=== PATIENT | female | born 1970 | race African-American/Black ===

== ENCOUNTER → 2016-11-07 | Outpatient (CLI) | payer MEDICAID ==
--- NOTE | 2016-11-07 10:36 | WOMENS IMAGING REPORT ---
EXAM DESCRIPTION: BILAT SCREENING MAMMO W/CAD COMPLETED DATE/TIME: 11/07/2016 10:13 am REASON FOR STUDY: Z12.31 ROUTINE SCREENING Z12.31 ENCNTR SCREEN MAMMOGRAM FOR MALIGNANT NEOPLASM OF NOHEMI COMPARISON: May 2013 TECHNIQUE: Standard craniocaudal and mediolateral oblique views of each breast recorded using digita l acquisition. LIMITATIONS: None. FINDINGS: No masses, calcifications or architectural distortion. No areas of suspicion. Read with the assistance of CAD. .[facility] - R2 Cenova Version 1.3 .[facility] Imaging - R2 Cenova Version 1.3 .[facility] Imaging - R2 Cenova Version 2.4 .[facility] - R2 Cenova Version 2.4 .[facility] - R2 Fish [employer] Processor Version 9.2 IMPRESSION: NORMAL MAMMOGRAM. BIRADS 1. BREAST DENSITY: c. The breasts are heterogeneously dense, which may obscure small masses. BIRAD: 1 NEGATIVE RECOMMENDATION: ROUTINE SCREENING COMMENT: The patient has been notified of the results by letter per SA requirements. Additional no tification policies are in place for contacting patient with suspicious or incomplete findings. Quality ID #[id number]: The [employer] recommends an annual screening mammogram for women aged 40 years or over. This facility utilizes a reminder system to ensure that all patients receive reminder letters, and/or direct phone calls for appointments. This includes reminders for routine scr eening mammograms, diagnostic mammograms, or other Breast Imaging Interventions when appropriate. Th is patient will be placed in the appropriate reminder system. The [employer] (ACR) has developed recommendations for screening MRI of the breast s in certain patient populations, to be used in conjunction with mammography. Breast MRI surveillanc e may be appropriate for women with more than 20% lifetime risk of developing breast cancer as deter mined by genetic testing, significant family history of the disease, or history of mantle radiation f or Hodgkins Disease. ACR Practice Guidelines 2008. TECHNICAL DOCUMENTATION: FINDING NUMBER: (1) ASSESSMENT: (1) JOB ID: [id number] [employer]- All Rights Reserved
== END ==
LOC: WI 09:57
PROVIDERS: ATTEND Physician Assistant
DX: Z12.31 Encounter for screening mammogram for malignant neoplasm of breast (principal)
CPT/HCPCS: 77067; G0202

== ENCOUNTER 2016-11-14 06:51 | Day surgery (SDC) | payer MEDICAID ==
[2016-11-14] MEDS ORDERED: ALBUTEROL SULFATE 0.083% NEB 2.5 MG/3 ML AMPUL NEB ONE ×2 (08:17→08:26)
[2016-11-14] MEDS ORDERED: ONDANSETRON HCL INJ/PF 4 MG/2 ML SDV ONE (08:26)
[2016-11-14] MEDS ORDERED: MIDAZOLAM 2 MG/2 ML INJ ONE (08:27)
[2016-11-14] MEDS ORDERED: FAMOTIDINE INJ/PF 20 MG/2 ML SDV IV ONE (08:27)
[2016-11-14] MEDS ORDERED: PROPOFOL INJ 200 MG/20 ML VIAL IV ONE (09:55)
[2016-11-14] MEDS ORDERED: RINGERS SOLUTION,LACTATED 1,000 ML IV PRN (10:00)
[2016-11-14] MEDS ORDERED: RINGERS SOLUTION,LACTATED 1,000 ML IV ONE (10:00)
[2016-11-14] MEDS ORDERED: DIPHENHYDRAMINE HCL 50 MG/ML VIAL IV PRN (10:11)
[2016-11-14] MEDS ORDERED: PROMETHAZINE HCL INJ 25 MG/1 ML VIAL IV PRN (10:11)
[2016-11-14] MEDS ORDERED: FENTANYL CITRATE INJ/PF 100 MCG/2 ML AMPUL IV PRN ×3 (10:11)
[2016-11-14] MEDS ORDERED: MORPHINE SULFATE 10 MG/ML INJ IV PRN (10:11)
[2016-11-14] MEDS ORDERED: MEPERIDINE HCL/PF INJ 25 MG/1 ML DISP.SYRIN IV PRN (10:11)
--- NOTE | 2016-11-14 11:03 | Operative Report ---
Operative Report DATE OF SURGERY: 11/14/16 Operative Report: The risks, benefits and alternatives of the procedure including risks of bleeding, patient requiring surgery are explained to the patient detail and informed consent was obtained. The patient is taken back to the operating room and placed in a left, lateral decubital position. Timeout was called. Propofol medications administered. An Olympus endoscope was inserted into the patient's rectum. The scope was then gradually advanced all the way to the cecum. The cecum was identified by the usual anatomical landmarks including the ileocecal valve as well as the appendiceal office. Photodocumentation is obtained. Prep is good. Scope was then sequentially pulled back. The various segments of the colon including the ascending colon, hepatic flexure, transverse colon, splenic flexure, descending colon and finally to the rectosigmoid portions of the colon. Retroflexion maneuver was performed. PREOPERATIVE DIAGNOSIS: Rectal bleeding. Colorectal cancer screening POSTOPERATIVE DIAGNOSIS: Internal hemorrhoids. Small anal fissure. Mild right- sided inflammation status post biopsy OPERATION: Colonoscopy with biopsy SURGEON: ANA WALTON ANESTHESIA: LMAC TISSUE REMOVED OR ALTERED: Right side: Specimens obtained without lymphocytic, microscopic, collagenous colitis. COMPLICATIONS: None. ESTIMATED BLOOD LOSS: None. INTRAOPERATIVE FINDINGS: As described above. PROCEDURE: Patient tolerated the procedure well. No immediate postprocedure complications are noted. Patient discharged in good condition. Discharge date 11/14/2016. Discharge diet: Regular. Discharge activity: Regular. 2-3 week follow-up to discuss findings. We will wait on biopsies. Patient is instructed to call the office or proceed to the emergency room should there be any further problems or questions.
[2016-11-14] MEDS ORDERED: SIMETHICONE 80 MG TAB.CHEW PO ONE (11:35)
[2016-11-14] MEDS ORDERED: SIMETHICONE 80 MG TAB.CHEW PO PRN (12:01)
[2016-11-14 12:13] VITALS: BP 109/66
== END 2016-11-14 12:05 | disposition home or self-care (01) ==
LOC: OROUT 06:51
PROVIDERS: ATTEND Internal Medicine Gastroenterology
PROC: 0DBF8ZX Excision of Right Large Intestine, Via Natural or Artificial Opening Endoscopic, Diagnostic (ICD-10-PCS; principal; 2016-11-14 09:15)
DX: K52.9 Noninfective gastroenteritis and colitis, unspecified (principal); K62.5 Hemorrhage of anus and rectum; K64.8 Other hemorrhoids; F17.210 Nicotine dependence, cigarettes, uncomplicated; M19.90 Unspecified osteoarthritis, unspecified site; Z79.899 Other long term (current) drug therapy; Z88.6 Allergy status to analgesic agent; Z88.8 Allergy status to other drugs, medicaments and biological substances
CPT/HCPCS: 45380; 81025; 88305 ×2; J2250; J2405; J2704; S0028; 810

== ENCOUNTER → 2017-11-27 | Outpatient (CLI) | payer MEDICAID, OTHER ==
--- NOTE | 2017-11-27 18:41 | WOMENS IMAGING REPORT ---
EXAM DESCRIPTION: BILAT SCREENING MAMMO W/CAD COMPLETED DATE/TIME: 11/27/2017 11:46 am REASON FOR STUDY: SCREENING MAMMO Z12.31 ENCNTR SCREEN MAMMOGRAM FOR MALIGNANT NEOPLASM OF NOHEMI COMPARISON: 2012 TECHNIQUE: Standard craniocaudal and mediolateral oblique views of each breast recorded using digita l acquisition. LIMITATIONS: None. FINDINGS: No masses, calcifications or architectural distortion. No areas of suspicion. Read with the assistance of CAD. .[facility] - R2 Cenova Version 1.3 .[facility] Imaging - R2 Cenova Version 1.3 .[facility] Imaging - R2 Cenova Version 2.4 .[facility] - R2 Cenova Version 2.4 .[facility] - R2 Supervisor Frame Assembly Version 9.2 IMPRESSION: NORMAL MAMMOGRAM. BIRADS 1. BREAST DENSITY: c. The breasts are heterogeneously dense, which may obscure small masses. BIRAD: 1 NEGATIVE RECOMMENDATION: ROUTINE SCREENING Please continue yearly bilateral screening in November 2018. Consider bilateral screening tomosynthesis given heterogeneously dense tissue bilaterally. COMMENT: The patient has been notified of the results by letter per SA requirements. Additional no tification policies are in place for contacting patient with suspicious or incomplete findings. Quality ID #225: The [employer] recommends an annual screening mammogram for women aged 40 years or over. This facility utilizes a reminder system to ensure that all patients receive reminder letters, and/or direct phone calls for appointments. This includes reminders for routine scr eening mammograms, diagnostic mammograms, or other Breast Imaging Interventions when appropriate. Th is patient will be placed in the appropriate reminder system. The [employer] (ACR) has developed recommendations for screening MRI of the breast s in certain patient populations, to be used in conjunction with mammography. Breast MRI surveillanc e may be appropriate for women with more than 20% lifetime risk of developing breast cancer as deter mined by genetic testing, significant family history of the disease, or history of mantle radiation f or Hodgkins Disease. ACR Practice Guidelines 2008. TECHNICAL DOCUMENTATION: FINDING NUMBER: (1) ASSESSMENT: (1) JOB ID: [id number] [employer]- All Rights Reserved Reading location - IP/workstation name: [facility]
== END ==
LOC: WI 10:40
PROVIDERS: ATTEND Family Medicine
DX: Z12.31 Encounter for screening mammogram for malignant neoplasm of breast (principal)
CPT/HCPCS: 77067

== ENCOUNTER 2017-12-12 09:04 | Emergency (ER) | payer OTHER ==
--- NOTE | 2017-12-12 10:07 | ER Document Report ---
ED GI/ - General Chief Complaint: Abdominal Pain Stated Complaint: ABDOMINAL PAIN Time Seen by Provider: 12/12/17 10:05 Mode of Arrival: Ambulatory Information source: Patient TRAVEL OUTSIDE OF THE U.S. IN LAST 30 DAYS: No - HPI Patient complains to provider of: Abdominal pain Onset: Other - 1 MONTH Timing/Duration: Gradual, Intermittent, Worse - LAST 2 DAYS Quality of pain: Dull Severity at maximum: Moderate Severity in ED: Moderate Context: denies: Bad food, Lifting, Out of the country travel, , Recent trauma Location: LUQ - W/ RADIATION TO CHEST Vaginal bleeding (Compared to normal period): None Menstrual period history: denies: Associated symptoms: Nausea, Vomiting Exacerbated by: Denies Relieved by: Denies Similar symptoms previously: Yes - BEFORE GB REMOVAL Recently seen / treated by doctor: No - Related Data Allergies/Adverse Reactions: aspirin [Aspirin] Allergy (Verified 12/12/17 09:05) hydroxyzine HCl [From Vistaril] Allergy (Verified 12/12/17 09:05) hydroxyzine pamoate [From Vistaril] Allergy (Verified 12/12/17 09:05) risperidone [From Risperdal] Allergy (Verified 12/12/17 09:05) Past Medical History - General Information source: Patient - Social History Smoking Status: Unknown if Ever Smoked Cigarette use (# per day): No Chew tobacco use (# tins/day): No Smoking Education Provided: No Frequency of alcohol use: Occasional Drug Abuse: None Lives with: Family Family History: CAD, DM Patient has suicidal ideation: No Patient has homicidal ideation: No - Past Medical History Cardiac Medical History: Reports: None Denies: Hx Coronary Artery Disease, Hx Heart Attack, Hx Hypertension Pulmonary Medical History: Reports: Hx Bronchitis Denies: Hx Asthma, Hx COPD, Hx Pneumonia EENT Medical History: Reports: None Neurological Medical History: Reports: None. Denies: Hx Cerebrovascular Accident, Hx Seizures Endocrine Medical History: Reports: None Renal/ Medical History: Reports: Hx Ectopic Malignancy Medical History: Reports: None GI Medical History: Reports: Hx Gastroesophageal Reflux Disease, Hx Pancreatitis - SECONDARY TO GB DISEASE Musculoskeltal Medical History: Reports Hx Arthritis - Shoulders/Legs Psychiatric Medical History: Reports: Hx Bipolar Disorder, Hx Depression Past Surgical History: Reports: Hx Cholecystectomy, Hx Gynecologic Surgery - ectopic, Hx Tubal Ligation - Immunizations Immunizations up to date: No Hx Diphtheria, Pertussis, Tetanus Vaccination: Yes Review of Systems - Review of Systems Constitutional: No symptoms reported. denies: Chills, Fever, Weight loss EENT: No symptoms reported Cardiovascular: Chest pain Respiratory: No symptoms reported Gastrointestinal: See HPI Genitourinary: No symptoms reported Female Genitourinary: No symptoms reported Musculoskeletal: No symptoms reported Skin: No symptoms reported Neurological/Psychological: No symptoms reported Physical Exam - Vital signs Vitals: Temp Pulse Resp BP Pulse Ox 98.2 F 85 20 120/78 97 12/12/17 09:09 12/12/17 09:09 12/12/17 09:09 12/12/17 09:09 12/12/17 09:09 Interpretation: Normal - General General appearance: Appears well, Alert In distress: None - HEENT Head: Normocephalic Eyes: Normal Conjunctiva: Normal Ears: Normal Nasal: Normal Mouth/Lips: Normal Mucous membranes: Normal - Respiratory Respiratory status: No respiratory distress Breath sounds: Normal - Cardiovascular Rhythm: Regular Heart sounds: Normal auscultation Murmur: No - Abdominal Inspection: Normal Distension: No distension Bowel sounds: Normal Tenderness: Tender - LUQ, LESSER LLQ - Back Back: Normal - Extremities General upper extremity: Normal inspection General lower extremity: Normal inspection - Neurological Neuro grossly intact: Yes Cognition: Normal Orientation: AAOx4 - Psychological Associated symptoms: Normal affect, Normal mood - Skin Skin Temperature: Warm Skin Moisture: Dry Skin Color: Normal Skin Turgor: Elastic Course - Re-evaluation Re-evalutation: 12/12/17 14:36 Patient reports abdominal pain still present. Nausea has resolved. Results of workup discussed with patient and spouse. Will attempt outpatient management with analgesics, anti-emetics and push fluids. - Vital Signs Vital signs: Temp Pulse Resp BP Pulse Ox 98.2 F 85 20 120/78 97 12/12/17 09:09 12/12/17 09:09 12/12/17 09:09 12/12/17 09:09 12/12/17 09:09 - Laboratory Result Diagrams: 12/12/17 11:30 12/12/17 11:30 Laboratory results interpreted by me: 12/12/17 12/12/17 10:30 11:30 Lipase 360.3 H Urine Urobilinogen 2.0 H - Diagnostic Test Radiology reviewed: Image reviewed, Reports reviewed - EKG Interpretation by Me EKG shows normal: Sinus rhythm - ARRHYTHMIA, [place], Intervals, QRS Complexes. abnormal: ST-T Waves - EARLY REPOL. Rate: Normal Rhythm: Arrthymia. No: NSR Discharge - Discharge Clinical Impression: Pancreatitis Qualifiers: Chronicity: acute Pancreatitis type: idiopathic Acute pancreatitis complication : no infection or necrosis Qualified Code(s): K85.00 - Idiopathic acute pancreatitis without necrosis or infection Condition: Stable Disposition: HOME, SELF-CARE Instructions: Pancreatitis ([facility]), Antinausea Medication ([facility]), Oral Narcotic Medication ([facility]) Additional Instructions: REST, DRINK PLENTY OF FLUIDS. AVOID ALL ALCOHOL. BLAND DIET, AVOID GREASY OR SPICY FOODS. FOLLOW UP WITH YOUR PRIMARY CARE PROVIDER IF NOT IMPROVING IN 48 HOURS. RETURN TO E.R. IF YOU GET WORSE, ANY TIME. Prescriptions: Ondansetron [Zofran Odt 4 mg Tablet] 1 - 2 tab PO Q4H #10 tab.rapdis Oxycodone HCl/Acetaminophen [Percocet 5-325 mg Tablet] 1 - 2 tab PO ASDIR PRN # 15 tablet PRN Reason: Referrals: IQRA WHITE DO [Primary Care Provider] - Follow up as needed
[2017-12-12 10:58] LABS: APPEARANCE,URINE SLIGHTLY-CLOUDY; BILIRUBIN,URINE NEGATIVE (NEGATIVE); COLOR,URINE YELLOW; GLUCOSE, URINE NEGATIVE (NEGATIVE); KETONES,URINE NEGATIVE (NEGATIVE); LEUKOCYTE ESTERASE,URINE NEGATIVE (NEGATIVE); NITRITE,URINE NEGATIVE (NEGATIVE); PROTEIN,URINE NEGATIVE (NEGATIVE)
[2017-12-12] MEDS ORDERED: METOCLOPRAMIDE HCL INJ/PF 10 MG/2 ML SDV IV ONE (11:21)
[2017-12-12 11:49] LABS: ABSOLUTE BASOPHILS # (AUTO) 0.1 10^3/uL (0.0-0.2); ABSOLUTE EOSINOPHILS # (AUTO) 0.1 10^3/uL (0.0-0.6); ABSOLUTE LYMPHOCYTES (AUTO) 1.8 10^3/uL (0.5-4.7); ABSOLUTE MONOCYTES (AUTO) 0.4 10^3/uL (0.1-1.4); ABSOLUTE NEUT (AUTO) 3.9 10^3/uL (1.7-8.2); BASOPHILS % (AUTO) 1.4 % (0-2); EOSINOPHILS % (AUTO) 1.9 % (0-6); HEMATOCRIT 40.2 % (36.0-47.0); HEMOGLOBIN 13.8 g/dL (12.0-15.5); LYMPHOCYTES % (AUTO) 28.4 % (13-45); MEAN CORPUSCULAR HEMOGLOBIN 33.3 pg (27.0-33.4); MEAN CORPUSCULAR HGB CONC 34.4 g/dL (32.0-36.0); MEAN CORPUSCULAR VOLUME 97 fl (80-97); PLATELET COUNT 342 10^3/uL (150-450); RED BLOOD COUNT 4.15 10^6/uL (3.72-5.28); RED CELL DISTRIBUTION WIDTH 12.4 % (11.5-14.0); SEGMENTED NEUTROPHILS % (AUTO) 61.3 % (42-78); TOTAL CELLS COUNTED % (AUTO) 100 %; WHITE BLOOD COUNT 6.4 10^3/uL (4.0-10.5)
[2017-12-12] MEDS ORDERED: FENTANYL CITRATE INJ/PF 100 MCG/2 ML AMPUL IV ONE (12:05)
[2017-12-12 12:10] LABS: ALANINE AMINOTRANSFERASE 26 U/L (9-52); ALBUMIN 4.1 g/dL (3.5-5.0); ALKALINE PHOSPHATASE 100 U/L (38-126); ANION GAP 9 (5-19); ASPARTATE AMINO TRANSFERASE 21 U/L (14-36); BILIRUBIN,DIRECT 0.3 mg/dL (0.0-0.4); BILIRUBIN,TOTAL 0.3 mg/dL (0.2-1.3); BLOOD UREA NITROGEN 13 mg/dL (7-20); CALCIUM 9.3 mg/dL (8.4-10.2); CARBON DIOXIDE 29 mmol/L (22-30); CHLORIDE 106 mmol/L (98-107); GLUCOSE 88 mg/dL (75-110); LIPASE 360.3 U/L (23-300); POTASSIUM 4.6 mmol/L (3.6-5.0); SODIUM 144.3 mmol/L (137-145)
--- NOTE | 2017-12-12 14:17 | RADIOLOGY REPORT (SQ) ---
EXAM DESCRIPTION: CT ABD/PELVIS WITH IV ORAL COMPLETED DATE/TIME: 12/12/2017 1:34 pm REASON FOR STUDY: L.U.Q. PAIN TENDERNESS x 1 MONTH COMPARISON: None. TECHNIQUE: CT scan of the abdomen and pelvis performed using helical scanning technique with dynamic intravenous contrast injection. No oral contrast. Images reviewed with lung, soft tissue, and bone windows. Reconstructed coronal and sagittal MPR images reviewed. Delayed images for evaluation of the urinary system also acquired. All images stored on PACS. All CT scanners at this facility use dose modulation, iterative reconstruction, and/or weight based d osing when appropriate to reduce radiation dose to as low as reasonably achievable (ALARA). [facility]: Dose Right [facility]: CareDose [facility]: Dose Right [facility]: Teradose 4D [facility]: [employer] CONTRAST TYPE AND DOSE: contrast/concentration: Isovue 370.00 mg/ml; Total Contrast Delivered: 66.0 ml; Total Saline Delivered: 65.0 ml RENAL FUNCTION: GFR > 60. RADIATION DOSE: CT Rad equipment meets quality standard of care and radiation dose reduction techniq ues were employed. CTDIvol: 5.1 - 7.0 mGy. DLP: 558 mGy-cm.. LIMITATIONS: None. FINDINGS: LOWER CHEST: No significant findings. No nodules or infiltrates. LIVER: Normal size. No masses. No dilated ducts. SPLEEN: Normal size. No focal lesions. PANCREAS: No masses. No significant calcifications. No adjacent inflammation or peripancreatic fluid collections. Pancreatic duct not dilated. GALLBLADDER: No identified stones by CT criteria. No inflammatory changes to suggest cholecystitis. ADRENAL GLANDS: No significant masses or asymmetry. RIGHT KIDNEY AND URETER: No solid masses. No significant calcifications. No hydronephrosis or hyd roureter. LEFT KIDNEY AND URETER: No solid masses. No significant calcifications. No hydronephrosis or hydr oureter. AORTA AND VESSELS: No aneurysm. No dissection. Renal arteries, SMA, celiac without stenosis. RETROPERITONEUM: No retroperitoneal adenopathy, hemorrhage or masses. BOWEL AND PERITONEAL CAVITY: No masses or inflammatory changes. No free fluid or peritoneal masses. APPENDIX: Normal. PELVIS: No mass. No free fluid. Normal bladder. ABDOMINAL WALL: No masses. No hernias. BONES: No significant or acute findings. OTHER: No other significant finding. IMPRESSION: NO ACUTE FINDING IN THE ABDOMEN OR PELVIS ON CT SCAN WITH IV CONTRAST. TECHNICAL DOCUMENTATION: JOB ID: [id number] Quality ID # [id number]: Final reports with documentation of one or more dose reduction techniques (e.g., Au tomated exposure control, adjustment of the mA and/or kV according to patient size, use of iterative reconstruction technique) 2010 [employer]- All Rights Reserved Reading location - IP/workstation name: [employer]
[2017-12-12 15:11] VITALS: BP 125/79
--- NOTE | 2017-12-12 21:02 | EKG REPORT ---
SEVERITY:- OTHERWISE NORMAL ECG - SINUS ARRHYTHMIA, RATE 55-[address] ST ELEV, PROBABLE NORMAL EARLY REPOL PATTERN : Confirmed by: Wilton Ty MD 12-Dec-2017 21:01:47
== END 2017-12-12 15:11 | disposition home or self-care (01) ==
LOC: ER 09:04
DX: K85.00 Idiopathic acute pancreatitis without necrosis or infection (principal)
CPT/HCPCS: 93005; 99284; 96374; 96375; 36415; 83690; 85025; 81025; 80053; 81001; 74177; 93010; J3010; J2765

== ENCOUNTER → 2019-03-04 | Outpatient (CLI) | payer OTHER ==
--- NOTE | 2019-03-04 15:41 | WOMENS IMAGING REPORT ---
EXAM DESCRIPTION: BILAT SCREENING MAMMO W/CAD COMPLETED DATE/TIME: 03/04/2019 12:35 pm REASON FOR STUDY: Z12.31 ENCOUNTER FOR SCREENING MAMMOGRAM FOR MALIGNANT NEOPLASM OF BREAST Z12.31 ENCNTR SCREEN MAMMOGRAM FOR MALIGNANT NEOPLASM OF NOHEMI M54.41 LUMBAGO WITH SCIATICA, RIGHT SIDE COMPARISON: Multiple since 2012 EXAM PARAMETERS: Standard craniocaudal and mediolateral oblique views of each breast recorded using digital acquisition. Read with the assistance of CAD. .[facility] - [employer] Director Version 9.2 LIMITATIONS: None. FINDINGS: No suspicious masses, suspicious calcifications or architectural distortion. No areas of c oncern. IMPRESSION: Negative MAMMOGRAM. BIRADS 1 BREAST DENSITY: d. The breasts are extremely dense, which lowers the sensitivity of mammography. BIRAD: ASSESSMENT: 1 NEGATIVE RECOMMENDATION: ROUTINE SCREENING Please consider bilateral screening tomosynthesis in February 2020 given extremely dense fibroglandu lar tissue bilaterally COMMENT: The patient has been notified of the results by letter per SA requirements. Additional no tification policies are in place for contacting patient with suspicious or incomplete findings. Quality ID #225: The [employer] recommends an annual screening mammogram for women aged 40 years or over. This facility utilizes a reminder system to ensure that all patients receive reminder letters, and/or direct phone calls for appointments. This includes reminders for routine scr eening mammograms, diagnostic mammograms, or other Breast Imaging Interventions when appropriate. Th is patient will be placed in the appropriate reminder system. TECHNICAL DOCUMENTATION: FINDING NUMBER: (1) ASSESSMENT: (1) JOB ID: [id number] [employer]- All Rights Reserved Reading location - IP/workstation name: [email or web address]
--- NOTE | 2019-03-05 09:49 | RADIOLOGY REPORT (SQ) ---
EXAM DESCRIPTION: MRI LUMBAR SPINE WITHOUT COMPLETED DATE/TIME: 03/04/2019 4:37 pm REASON FOR STUDY: LUMBAGO W/SCIATICA, RIGHT SIDE (M54.41) Z12.31 ENCNTR SCREEN MAMMOGRAM FOR MALIGN ANT NEOPLASM OF NOHEMI M54.41 LUMBAGO WITH SCIATICA, RIGHT SIDE COMPARISON: None. TECHNIQUE: Sagittal and Axial imaging includes T1, T2, STIR and gradient echo sequences. Coronal T2/ HASTE imaging. LIMITATIONS: None. FINDINGS: VISUALIZED UPPER ABDOMEN: Limited evaluation. No acute or suspicious findings suggested. SEGMENTATION: No transitional anatomy. The lowest well-developed disc space is labeled L5-S1. ALIGNMENT: Anatomic. VERTEBRAE: Intact. BONE MARROW: Normal. No marrow replacement or reactive changes. DISC SIGNAL: Loss T2 signal L5-S1. POSTERIOR ELEMENTS: Generally intact. No pars defect evident. HARDWARE: None in the spine. CORD AND CONUS: Normal in size and signal intensity. Conus at the appropriate level. SOFT TISSUES: No aortic aneurysm seen. No bulky retroperitoneal adenopathy or mass. No paraspinal mas s or fluid. L1-L2: No significant spinal stenosis or exit foraminal stenosis. Mild lateral recess narrowing. L2-L3: No significant spinal stenosis or exit foraminal stenosis. L3-L4: Disc bulge. Mild posterior element overgrowth. Mild narrowing of the exit foramina. L4-L5: Disc bulge with mild narrowing of the exit foramina. Small right posterolateral fissure. L5-S1: Disc bulge. Small right and left posterolateral fissure. LOWER THORACIC: Incompletely imaged. No stenosis seen. SACRUM: Visualized upper sacrum intact. OTHER: No other significant findings. IMPRESSION: Mild spondylosis. Fissures at L4-5 and L5-S1. No critical stenosis. TECHNICAL DOCUMENTATION: JOB ID: [id number] [employer]- All Rights Reserved Reading location - IP/workstation name: [email or web address]
== END ==
LOC: WI 11:37
PROVIDERS: ATTEND Family Medicine
DX: Z12.31 Encounter for screening mammogram for malignant neoplasm of breast (principal); M51.17 Intervertebral disc disorders with radiculopathy, lumbosacral region
CPT/HCPCS: 72148; 77067

== ENCOUNTER 2019-04-09 17:27 | Emergency (ER) | payer OTHER ==
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
[2019-04-09] MEDS ORDERED: ACETAMINOPHEN 325 MG TABLET PO ONE (18:01)
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
[2019-04-09] MEDS ORDERED: MORPHINE SULFATE 10 MG/ML INJ IM ONE (20:07)
[2019-04-09] MEDS ORDERED: IBUPROFEN 600 MG TABLET PO ONE (20:07)
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
[2019-04-09] MEDS ORDERED: DIAZEPAM 5 MG TABLET PO ONE (22:58)
[2019-04-09 23:11] LABS: ABSOLUTE BASOPHILS # (AUTO) 0.1 10^3/uL (0.0-0.2); ABSOLUTE EOSINOPHILS # (AUTO) 0.1 10^3/uL (0.0-0.6); ABSOLUTE LYMPHOCYTES (AUTO) 3.4 10^3/uL (0.5-4.7); ABSOLUTE MONOCYTES (AUTO) 0.7 10^3/uL (0.1-1.4); ABSOLUTE NEUT (AUTO) 4.3 10^3/uL (1.7-8.2); BASOPHILS % (AUTO) 1.3 % (0-2); EOSINOPHILS % (AUTO) 0.8 % (0-6); HEMATOCRIT 42.5 % (36.0-47.0); HEMOGLOBIN 14.4 g/dL (12.0-15.5); LYMPHOCYTES % (AUTO) 39.3 % (13-45); MEAN CORPUSCULAR HEMOGLOBIN 33.4 pg (27.0-33.4); MEAN CORPUSCULAR HGB CONC 33.9 g/dL (32.0-36.0); MEAN CORPUSCULAR VOLUME 99 fl (80-97); MONOCYTES % (AUTO) 8.3 % (3-13); PLATELET COUNT 331 10^3/uL (150-450); RED BLOOD COUNT 4.31 10^6/uL (3.72-5.28); RED CELL DISTRIBUTION WIDTH 12.7 % (11.5-14.0); SEGMENTED NEUTROPHILS % (AUTO) 50.3 % (42-78); TOTAL CELLS COUNTED % (AUTO) 100 %; WHITE BLOOD COUNT 8.6 10^3/uL (4.0-10.5)
[2019-04-09 23:29] LABS: ALBUMIN 4.2 g/dL (3.5-5.0); ALKALINE PHOSPHATASE 88 U/L (38-126); ANION GAP 8 (5-19); ASPARTATE AMINO TRANSFERASE 25 U/L (14-36); BILIRUBIN,DIRECT 0.1 mg/dL (0.0-0.4); BILIRUBIN,TOTAL 0.2 mg/dL (0.2-1.3); BLOOD UREA NITROGEN 11 mg/dL (7-20); CALCIUM 9.5 mg/dL (8.4-10.2); CARBON DIOXIDE 30 mmol/L (22-30); CHLORIDE 106 mmol/L (98-107); GLUCOSE 115 mg/dL (75-110); POTASSIUM 4.1 mmol/L (3.6-5.0); TOTAL PROTEIN 7.2 g/dL (6.3-8.2)
[2019-04-09 23:34] LABS: ACETAMINOPHEN < 10 ug/mL (10-30); ALCOHOL < 10 mg/dL (NONE DETECTED); SALICYLATE < 1.0 mg/dL (2.0-20.0)
[2019-04-10] MEDS ORDERED: HYDROCODONE/ACETAMINOPHEN 5-325 MG TABLET PO ONE (00:57)
[2019-04-10 01:08] LABS: APPEARANCE,URINE SLIGHTLY-CLOUDY; BILIRUBIN,URINE NEGATIVE (NEGATIVE); COLOR,URINE YELLOW; GLUCOSE, URINE NEGATIVE (NEGATIVE); KETONES,URINE NEGATIVE (NEGATIVE); LEUKOCYTE ESTERASE,URINE NEGATIVE (NEGATIVE); NITRITE,URINE NEGATIVE (NEGATIVE); PROTEIN,URINE 30 mg/dL (NEGATIVE); URINE SPECIFIC GRAVITY 1.034
--- NOTE | 2019-04-10 01:08 | EKG REPORT ---
SEVERITY:- BORDERLINE ECG - SINUS RHYTHM PROBABLE LEFT ATRIAL ABNORMALITY : Confirmed by: Wilton Ty MD 10-Apr-2019 01:07:25
[2019-04-10 01:12] LABS: ADD MANUAL MICROSCOPIC YES; BACTERIA,URINE TRACE /HPF
[2019-04-10 01:36] LABS: URINE AMPHETAMINES SCREEN NEGATIVE; URINE BARBITURATES SCREEN NEGATIVE; URINE BENZODIAZEPINES SCREEN NEGATIVE; URINE COCAINE SCREEN UNCONFIRMED POSITIVE; URINE MARIJUANA (THC) SCREEN UNCONFIRMED POSITIVE; URINE METHADONE SCREEN NEGATIVE; URINE PHENCYCLIDINE SCREEN NEGATIVE
[2019-04-10] MEDS ORDERED: IBUPROFEN 600 MG TABLET PO ONE (09:12)
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
--- NOTE | 2019-04-10 11:24 | ER Document Report ---
Doctor's Note Notes: 04/10/19 11:21 I have evaluated the patient at bedside. IVC paperwork was not filled out on this patient. She continues to voice pain in her right hip. Voices she does have a history of sciatic nerve pain on the right side. Patient voices she does not want to hurt herself, she is denying any homicidal ideations. GENERAL: Alert, interacts well. No acute distress. HEAD: Normocephalic, atraumatic. EYES: Pupils equal, round, and reactive to light. Extraocular movements intact. ENT: Oral mucosa moist, tongue midline. NECK: Full range of motion. Supple. Trachea midline. LUNGS: Clear to auscultation bilaterally, no wheezes, rales, or rhonchi. No respiratory distress. HEART: Regular rate and rhythm. No murmur ABDOMEN: Soft, non-tender. Non-distended. Bowel sounds present in all 4 quadrants. EXTREMITIES: Moves all 4 extremities spontaneously. No edema, normal radial and dorsalis pedis pulses bilaterally. No cyanosis. 5 out of 5 strength noted all 4 extremities. BACK: no cervical, thoracic, lumbar midline tenderness. No saddle anesthesia, normal distal neurovascular exam. NEUROLOGICAL: Alert and oriented x3. Normal speech. cranial nerves II through XII grossly intact. PSYCH: Normal affect, normal mood. SKIN: Warm, dry, normal turgor. No rashes or lesions noted. Raymond Momin, mental health fashion merchandiser has evaluated this patient at bedside. Patient stable for discharge with community outpatient referral lists and detox substance abuse lifts, housing services.
[2019-04-10 12:11] VITALS: BP 126/84
[2019-04-10] MEDS ORDERED: HYDROCODONE/ACETAMINOPHEN 5-325 MG (6 TAB/ER DISP) PO PRN (12:16)
== END 2019-04-10 12:24 | disposition home or self-care (01) ==
LOC: ER 17:27
DX: R45.851 Suicidal ideations (principal); M25.552 Pain in left hip; M54.9 Dorsalgia, unspecified; Y04.2XXA Assault by strike against or bumped into by another person, initial encounter; F17.200 Nicotine dependence, unspecified, uncomplicated; Z88.6 Allergy status to analgesic agent; Z90.49 Acquired absence of other specified parts of digestive tract; Z98.51 Tubal ligation status
CPT/HCPCS: 93005; 36415; 80307 ×4; 85025; 80053; 81001; 72110; 72170; 93010; J2270

== ENCOUNTER → 2020-04-18 | Outpatient (CLI) | payer MEDICAID, OTHER ==
--- NOTE | 2020-04-18 13:14 | RADIOLOGY REPORT (SQ) ---
EXAM DESCRIPTION: MRI LUMBAR SPINE WITHOUT IMAGES COMPLETED DATE/TIME: 04/18/2020 10:39 am REASON FOR STUDY: M54.16 RADICULOPATHY, LUMBAR REGION M54.16 RADICULOPATHY, LUMBAR REGION COMPARISON: 03/04/2019 TECHNIQUE: Sagittal and Axial imaging includes T1, T2, STIR and gradient echo sequences. Coronal T2/ HASTE imaging. LIMITATIONS: None. FINDINGS: VISUALIZED UPPER ABDOMEN: Limited evaluation. No acute or suspicious findings suggested. SEGMENTATION: No transitional anatomy. The lowest well-developed disc space is labeled L5-S1. ALIGNMENT: Anatomic. VERTEBRAE: Intact. BONE MARROW: Normal. No marrow replacement or reactive changes. DISC SIGNAL: Mild desiccation at L5-S1. POSTERIOR ELEMENTS: Generally intact. No pars defect evident. HARDWARE: None in the spine. CORD AND CONUS: Normal in size and signal intensity. Conus at the appropriate level. SOFT TISSUES: No aortic aneurysm seen. No bulky retroperitoneal adenopathy or mass. No paraspinal mas s or fluid. L1-L2: No significant spinal stenosis or exit foraminal stenosis. L2-L3: No significant spinal stenosis or exit foraminal stenosis. L3-L4: No significant spinal stenosis or exit foraminal stenosis. L4-L5: No significant spinal stenosis or exit foraminal stenosis. L5-S1: No significant spinal stenosis or exit foraminal stenosis. LOWER THORACIC: Incompletely imaged. No stenosis seen. SACRUM: Visualized upper sacrum intact. OTHER: No other significant findings. IMPRESSION: Mild desiccation at L5-S1. No central stenosis or nerve root impingement. TECHNICAL DOCUMENTATION: JOB ID: [id number] 2010 [employer]- All Rights Reserved Reading location - IP/workstation name: [email or web address]
--- OUTSIDE RECORDS SUMMARY | 2020-04-19 18:25 | XMS REPORT ---
:1970 Author Organization [facility] Address [facility] [address] [place] [id number] Care Team Providers Name Role Phone Carlos Attending Clinician Unavailable Alden Attending Clinician Unavailable Allergies, Adverse Reactions, Alerts This patient has no known allergies or adverse reactions. Medications Ordered Filled Start Stop Current Ordering Indication Dosage Frequency Signature Comments Components Medication Medication Date Date Medication? Clinician (SIG) Name Name diazepam 10 No diazepam mg tablet 10 mg TAKE 1 tablet TABLET BY TAKE 1 MOUTH 30 TABLET BY minutes MOUTH 30 before minutes procedure. before bring procedure. remaining bring tablet to remaining procedure tablet to procedure gabapentin No gabapentin 300 mg 300 mg capsule TK capsule TK 1 C PO BID 1 C PO BID ibuprofen No ibuprofen 600 mg 600 mg tablet tablet lidocaine 5 No lidocaine % topical 5 % patch topical patch methocarbam No 1 TID methocarba ol 750 mg mol 750 mg tablet Take tablet 1 tablet 3 Take 1 times a day tablet 3 by oral times a route as day by needed. oral route as needed. oxycodone-a No oxycodone- cetaminophe acetaminop n 5 mg-325 hen 5 mg tablet mg-325 mg TAKE 1 tablet TABLET BY TAKE 1 MOUTH FOUR TABLET BY TIMES DAILY MOUTH FOUR NEEDED TIMES DAILY NEEDED oxycodone-a No oxycodone- cetaminophe acetaminop n 7.5 hen 7.5 mg-325 mg mg-325 mg tablet TAKE tablet 1 TABLET BY TAKE 1 MOUTH THREE TABLET BY TIMES DAILY MOUTH THREE TIMES DAILY celecoxib No celecoxib 200 mg 200 mg capsule capsule TAKE 1 TAKE 1 CAPSULE BY CAPSULE BY MOUTH EVERY MOUTH DAY EVERY DAY Problems Condition Condition Condition Status Onset Resolution Last Treatin g Comments Name Details Category Date Date Treatment Clinician Date Inflammatio Inflammatio Problem Active n of n of 2-06 rotator Rotator 00:00: cuff tendon Cuff Tendon 00 Procedures Procedure Date / Time Performed Performing Clinician Tan ch XR, shoulder 2019-07-14 00:00:00 SELF PAY ESTABLISHED OV 2017-11-24 09:30:00 PREV VISIT NEW AGE 40-64 2016-10-24 10:15:00 Results Test Description Test Time Test Comments Text Results Atomic Results Result Comments CBC (H/H, RBC, INDICES, WBC, PLT) 2017-11-24 10:55:00 Test Item Value Reference Range Comments MCH (test code = 51460391) 32.8 pg 27.0-33.0 MCV (test code = 34750641) 98.8 fL 80.0-100.0 RDW (test code = 00475173) 11.5 % 11.0-15.0 MPV (test code = 72967603) 9.8 fL 7.5-12.5 PLATELET COUNT (test code = 26401054) 327 Thousand/uL 140-400 HEMATOCRIT (test code = 58335700) 41.6 % 35.0-45.0 WHITE BLOOD CELL COUNT (test code = 74168449) 5.5 Thousand/uL 3. 8-10.8 RED BLOOD CELL COUNT (test code = 80362857) 4.21 Million/uL 3.80 -5.10 HEMOGLOBIN (test code = 29374636) 13.8 g/dL 11.7-15.5 MCHC (test code = 13957268) 33.2 g/dL 32.0-36.0 COMPREHENSIVE METABOLIC [id number] 10:55:00 Test Item Value Reference Range Comments SODIUM (test code = 33029654) 137 mmol/L 135-146 POTASSIUM (test code = 38305147) 4.6 mmol/L 3.5-5.3 PROTEIN, TOTAL (test code = 39075762) 6.1 g/dL 6.1-8.1 CREATININE (test code = 14583112) 0.89 mg/dL 0.50-1.10 CHLORIDE (test code = 24323947) 106 mmol/L 98-110 eGFR (test code = 91 mL/min/1.73m2 > OR = 60 90458614) CALCIUM (test code = 49322273) 9.0 mg/dL 8.6-10.2 GLUCOSE (test code = 52308850) 97 mg/dL 65-99 ALKALINE PHOSPHATASE (test code = 66 U/L 33-115 83686492) GLOBULIN (test code = 41535041) 2.3 g/dL (calc) 1.9-3.7 ALBUMIN/GLOBULIN RATIO (test code = 1.7 (calc) 1.0-2.5 33409058) BUN/CREATININE RATIO (test code = NOT APPLICABLE (calc) 6-22 41254134) ALBUMIN (test code = 68306068) 3.8 g/dL 3.6-5.1 ALT (test code = 35732816) 26 U/L 6-29 BILIRUBIN, TOTAL (test code = 0.2 mg/dL 0.2-1.2 23296143) AST (test code = 64632204) 23 U/L 10-35 UREA NITROGEN (BUN) (test code = 9 mg/dL 7-25 ) CARBON DIOXIDE (test code = 51947476) 27 mmol/L 20-31 eGFR NON-AFR. NIUEAN (test code = 78 mL/min/1.73m2 > OR = 60 71527525) [id number] 10:55:000.70HEMOGLOBIN A1c WITH [id number] 10:55:00 Test Item Value Reference Range Comments eAG (mg/dL) (test code = 77027561) 108 (calc) eAG (mmol/L) (test code = 86987981) 6.0 (calc) HEMOGLOBIN A1c (test code = 90604634) 5.4 % of total Hgb <5.7 BV/VAGINITIS PANEL DNA [id number] 10:55:00SEE NOTELIPID PANEL WITH REFLEX TO DIRECT [id number] 10:55:00 Test Item Value Reference Range Comments TRIGLYCERIDES (test code = 38118482) 130 mg/dL <150 LDL-CHOLESTEROL (test code = 47814386) 65 mg/dL (calc) HDL CHOLESTEROL (test code = 75181423) 42 mg/dL >50 NON HDL CHOLESTEROL (test code = 23829161) 86 mg/dL (calc) <130 CHOL/HDLC RATIO (test code = 64003088) 3.0 (calc) <5.0 CHOLESTEROL, TOTAL (test code = 22160258) 128 mg/dL <200 HCG QUALITATIVE, URINE\[id number] 07:27:00 Test Item Value Reference Range Comments HCG QUALITATIVE, URINE (test code = UHCG) NEGATIVE NEGATI VE Wet Prep by Molecular [id number] 10:53:00 Test Item Value Reference Range Comments Trichomonas vaginalis (test code = 400808) NEG Negat sona Gardnerella vaginalis (test code = 463127) NEG Negat sona Janie species (test code = 917510) NEG Negative CMP with Estimated [id number] 10:53:00 Test Item Value Reference Range Comments Albumin (test code = 241670) 3.8 g/dL 3.6-5.1 Glucose (test code = 259212) 96 mg/dL 65-99 Est GFR, NonAfrican Azerbaijani (test code = 746301) 79 mL/min >=60 Total Protein (test code = 460938) 6.2 g/dL 6.1-8.1 Calcium (test code = 433796) 8.6 mg/dL 8.6-10.2 Potassium (test code = 034731) 4.1 mmol/L 3.5-5.3 Bilirubin, Total (test code = 827972) 0.2 mg/dL 0.2-1.2 CO2 (test code = 232297) 25 mmol/L 20-31 Alkaline Phosphatase (test code = 482150) 83 U/L 33-115 Sodium (test code = 002908) 140 mmol/L 135-146 ALT/SGPT (test code = 772119) 15 U/L 6-29 AST/SGOT (test code = 448902) 17 U/L 10-30 Creatinine (test code = 320916) 0.89 mg/dL 0.50-1.10 BUN (test code = 347913) 14 mg/dL 7-25 Chloride (test code = 992951) 108 mmol/L 98-110 Est GFR, (test code = 734168) >89 mL/min > =60 HSV 1/2 IgG, Type-Specific [id number] 10:53:00 Test Item Value Reference Range Comments Herpes simplex virus 2 Ab,IgG (test code = 11.40 Index <0.90 466789) Herpes simplex virus 1 Ab,IgG (test code = 30.10 Index <0.90 723383) Acute Hepatitis Panel (Refl)2016-10-24 10:53:00 Test Item Value Reference Range Comments Hepatitis B Surface Antigen (test code = NEGATIVE NEGATIV E 237470) Hepatitis B Core Ab, IgM (test code = 170690) NON REACTIVE NO N REACTIVE Hepatitis A Antibody, IgM (test code = 528018) NON REACTIVE N ON REACTIVE Hepatitis C Antibody (test code = 041694) NEGATIVE NEGATI VE Lipid [id number] 10:53:00 Test Item Value Reference Range Comments VLDL Cholesterol (Calc) (test code = 883049) 33 mg/dL <30 LDL Cholesterol (Calc) (test code = 348157) 46 mg/dL <130 Total Chol/HDL Ratio (test code = 566555) 3.3 Ratio <=5.0 HDL Cholesterol (test code = 385708) 35 mg/dL >=46 Triglyceride (test code = 203608) 167 mg/dL <150 Cholesterol (test code = 865849) 114 mg/dL 125-200 CBC NO Diff (Complete Blood Count)2016-10-24 10:53:00 Test Item Value Reference Range Comments Platelet Count (test code = 740645) 331 K/uL 140-400 MPV (test code = 310693) 10.5 fL 7.5-12.5 Hematocrit (test code = 795477) 38.6 % 35.0-45.0 RDW (test code = 191872) 12.2 % 11.0-15.0 MCH (test code = 612090) 32.0 pg 27.0-33.0 MCHC (test code = 588697) 32.6 g/dL 32.0-36.0 Hemoglobin (test code = 640400) 12.6 g/dL 11.7-15.5 RBC (test code = 639508) 3.94 MIL/uL 3.80-5.10 WBC (test code = 833621) 7.7 K/uL 3.8-10.8 MCV (test code = 724753) 98.0 fL 80.0-100.0 [id number] 10:53:00 Test Item Value Reference Range Comments TSH (test code = 596253) 0.95 mIU/L HIV 1/2 Ag/Ab, 4th Gen, w/ [id number] 10:53:00 Test Item Value Reference Range Comments HIV Ag/Ab, 4th Generation (test code = 361312) NONREACTIVE N ONREACTIVE RPR w/ Rflx to Titer and [id number] 10:53:00 Test Item Value Reference Range Comments RPR (test code = 305052) NON REAC NON REAC Assessments Condition Name Status Diagnosis Date Treating Clinici an Inflammation of rotator cuff tendon Active 2019-07-14 1 0:52:31 Shoulder pain Active 2019-07-14 10:14:57 Frequency of micturition Active Other specified noninflammatory Active disorders of vagina Family history of diabetes mellitus Active Encntr screen mammogram for malignant Active neoplasm of breast Encntr for general adult medical exam Active w/o abnormal findings Encounter for screening for malignant Active neoplasm of cervix Encounter for oth screening for Active malignant neoplasm of breast Encntr screen for infections w sexl Active mode of transmiss Encounters Start End Encounter Admission Attending Care Care Encounter Date/Time Date/Time Type Type Clinicians Facility Department ID 2019-07-14 2019-07-14 [facility] [id number]:00:00 00:00:00 lucille Araujo P.A. P.A. [id number] MD: [address] [place] [phone], Ph. 2017-11-24 2017-11-24 Outpatient Carlos [facility] 2 [id number] 09:30:00 09:30:00 Sundeep Children [id number] and [id number] [facility] [place] 2016-10-24 2016-10-24 Outpatient Alden [facility] 0C [id number] 10:15:00 10:15:00 Jennifer Children [id number] and [id number] [facility] [place] Social History Smoking Status Start Date Stop Date Unknown If Ever Smoked Vital Signs This patient has no known vital signs. Hospital Discharge Instructions 1. Inflammation of rotator cuff tendon methocarbamol 750 mg tablet physical therapy referral2. Shoulder pain shoulder pain: care instructions XR, shoulder Discussion Note: None recorded.
== END ==
LOC: RAD 09:37
PROVIDERS: ATTEND Family Medicine
DX: M54.16 Radiculopathy, lumbar region (principal)
CPT/HCPCS: 72148